=== PATIENT | female | born 1925 | race African-American/Black ===

== ENCOUNTER 2016-11-30 13:26 | Outpatient (CLI) | payer MEDICARE, BC ==
[~2016-11-30] VITALS: Ht 160 cm; Wt 57.2 kg
[2016-11-30 15:47] VITALS: BP 125/65
[2016-11-30] MEDS ORDERED: CARBIDOPA-LEVO1 EA13 PO (15:57)
[2016-11-30] MEDS ORDERED: LASIX20 M1 ORAL (15:57)
[2016-11-30] MEDS ORDERED: BP medication (15:57)
--- NOTE | 2016-11-30 17:03 | GI Initial Consult Note ---
History of Present Illness General Date patient seen: Nov 30, 2016 Time patient seen: 15:00 Referring physician: FAVIOLA Reason for Consultation: PEG EVALUATION Present Illness HPI 89 year old referred by Dr. Hoyt BIB caregiver/family member for c/o of dysphagia and PEG evaluation. The patient presents today with dysphagia from 7- 8 months, weight loss of 151lbs to 126 lbs in a period of 7 months. In addition , the patient has history of GERD and difficulty in opening her mouth. Unknown history of endoscopic procedures. Home Meds Reported Medications Furosemide* (LASIX*) 20 Mg Tablet, ORAL DAILY, TAB 11/30/16 [BP medication ] No Conflict Check 11/30/16 Carbidopa/Levodopa (CARBIDOPA-LEVO 25-100 MG ODT) 1 Each Tab.rapdis, PO, TAB 11/30/16 Med list reviewed/reconciled: Yes Allergies: Coded Allergies: Dust (Verified Allergy, Unknown, 11/30/16) PERFUME (Verified Allergy, Unknown, 11/30/16) Uncoded Allergies: fleas (Allergy, Unknown, 11/30/16) Patient History Limited by: medical condition History Provided By: Family Member, Medical Record [facility] Narrative GERD HTN Parkinson's disease Dx x 3 years Social History: Denies: smoking, alcohol use, drug use, other Review of Systems All Other Systems: limited Physical Exam Vital Signs Date Time Temp Pulse Resp B/P (MAP) Pulse Ox O2 Delivery O2 Flow Rate FiO2 11/30/16 15:47 97.4 96 16 125/65 97 Sp02 EP Interpretation: reviewed General Appearance: well appearing, no apparent distress Head: normocephalic EENT: PERRL/EOMI, normal ENT inspection Neck: supple Respiratory: lungs clear, no respiratory distress Cardiovascular: normal rate Gastrointestinal: soft Rectal: deferred Skin: normal inspection, normal color, no rash, warm/dry Lymphatic: normal inspection, no adenopathy GI: Plan Problems: (1) Encounter for PEG (percutaneous endoscopic gastrostomy) (2) Dysphagia (3) Parkinson disease (4) GERD (gastroesophageal reflux disease) (5) HTN (hypertension) (6) Weight loss Plan PEG procedure explained to patient including all the risks and benefits. Family refusing for PEG placement at this time, states they will consider and contact us when they agree. A total of 30 minutes was spent discussing the family members concerns. Seen with Dr. Garcia. Thank you for referring this patient. Cheryl Jfefery N.P. Nov 30, 2016 17:03
== END 2016-11-30 14:30 | disposition home or self-care (01) ==
LOC: PAN 13:26
DX: R13.10 Dysphagia, unspecified (principal); G20 Parkinson's disease; K21.9 Gastro-esophageal reflux disease without esophagitis; I10 Essential (primary) hypertension; R63.4 Abnormal weight loss; Z91.09 Other allergy status, other than to drugs and biological substances
CPT/HCPCS: 99201